=== PATIENT | male | born 1980 | race Caucasian/White ===

== ENCOUNTER 2022-02-10 20:01 | Emergency (ER) | payer MEDICAID, SELFPAY ==
[2022-02-10 20:17] VITALS: BP 128/72; PULSE 88; RESP 18; TEMP 36.4; O2SAT 98; BMI 22.6
--- NOTE | 2022-02-10 23:30 | ED_ITS ---
HPI - Anxiety General: Chief Complaint: Anxiety Stated Complaint: SOB\Chest Hurts\Bruised Tailbone\Dizzy\PanicAttack Time Seen by Provider: 02/10/22 23:30 History of Present Illness: Mr. Daley is a 41-year-old gentleman who presents emergency department due to multiple concerns. He reports a number of months ago being diagnosed with Covid and essentially since that time has had shortness of breath. Additionally he has had occasional episodes of chest discomfort in the left shoulder region though no other typical cardiac features with this. He also has noticed redness on his tailbone and has a history of similar with sometimes drainage. He endorses insomnia and difficulty with anxiety. He reports a longstanding history of medical concerns and estimates that he is probably seen 750 physicians in his lifetime. He does have a history of back surgery. Overall the intensity of symptoms is moderate. Course has persisted. He has had similar episodes in the past. Upon further clarification he does have a possible history of snoring and has never been evaluated for sleep apnea. He has difficulty falling asleep and staying asleep. He often wakes feeling tired and has frequent headaches though he has a history of back surgery and has had headaches since that time. Headaches have not changed significantly in these are not the worst headaches of his life. No other specific changes in health, exacerbating, or relieving factors identified. Onset (ago): year(s) Severity: moderate Review of Systems General: Reports: 10 or more systems reviewed and unremarkable except in HPI and below PFSH ED PFSH: Medical History Anxiety COVID Surgical History Previous back surgery Family History Other Degenerative joint disease (DJD) of lumbar spine Physical Exam Const: COMMON NORMALS: alert GENERAL APPEARANCE: cooperative and well developed HENMT: COMMON NORMALS: normocephalic and atraumatic HEAD & SCALP: normocephalic and atraumatic Eye: COMMON NORMALS: conjunctivae normal CONJUNCTIVA: Yes conjunctivae normal SCLERA: sclerae normal Neck/C-Spine: COMMON NORMALS: supple GENERAL: Yes trachea midline Resp: COMMON NORMALS: normal respiratory effort and clear to auscultation bilaterally EFFORT & INSPECTION: Yes able to speak in complete sentences AUSCULTATION: clear to auscultation bilaterally Cardio: COMMON NORMALS: regular rate and regular rhythm RATE: regular rate RHYTHM: regular rhythm GI: COMMON NORMALS: Soft to palpation PALPATION: Yes Soft to palpation and No Tenderness to palpation present (GI) PERCUSSION: normal to percussion Back/Pelvis: OTHER: The patient does have cellulitic appearing findings around region consistent with pilonidal cyst, there is no palpable fluid collection or obviously drainable fluid collection. Extremity: GENERAL: Yes normal exam except as noted and No edema Neuro: COMMON NORMALS: moves all extremities SENSORIUM/ORIENTATION: Yes alert and No Orientation impaired Psych: COMMON NORMALS: mental status grossly normal and Normal thought process present MOOD & AFFECT: Yes anxious THOUGHT PROCESS: Normal thought process present Course ED course: - Patient was seen and evaluated by me at bedside - Patient placed on cardiac monitors, IV access obtained - Initial evaluation notable for exam as above - Labs notable for leukocytosis of unclear significance, possibly related to cellulitis. No other sirs criteria identified. No acute electrolyte abnormalities requiring intervention. - Imaging notable for no acute finding on chest x-ray. Lumbar spine with intact hardware. - Upon serial reexamination after treatment the patient was similar to mildly improved - Based on patient history, evaluation, labs, and imaging as interpreted the most likely cause of the patient's condition is multifactorial, he certainly has anxiety though he may have underlying medical conditions such as sleep apnea. There does appear to be a small area of cellulitis which in the context of patient's symptoms and leukocytosis I will plan to treat. - The results of ED evaluation were discussed extensively with the patient including prescriptions and/or symptomatic cares (if applicable) including appropriate and responsible use, followup plan, and return precautions. The patient verbalized understanding and felt safe for discharge. - Patient discharged in satisfactory condition. Note: Click bubbles or prepopulated velasquez in note writing are used for assistance with data collection and billing and are inherently more limited than narrative and other text portions of this note. Please use narrative for additional clinical history and defer to narrative/free test for any case of contradictory information. If information appears in only free text or click bubble it should be considered present or absent as reported. Please contact note technical report writer for clarifications of clinical information or contradictory information. MDM is a brief summary, contradictory or erroneous seeming information should be clarified and full note should be reviewed. Vital Signs: Vital signs: Vital Signs Temperature 97.5 F L 02/11/22 01:17 Pulse Rate 85 02/11/22 01:17 Respiratory Rate 18 02/11/22 01:17 Blood Pressure 130/74 02/11/22 01:17 Pulse Oximetry 99 02/11/22 01:17 MDM - Anxiety Medical Decision Making 41-year-old gentleman with history of anxiety presenting with various concerns. ED evaluation only notable for cellulitis which will be treated with antibiotics. Patient referred for outpatient follow-up. Satisfactory for outpatient management. Medical Records I reviewed the patient's medical records. Lab Data I reviewed the patient's lab results. : 02/10/22 21:33 02/10/22 21:33 Radiology Impressions Chest X-Ray 02/10/22 23:41 IMPRESSION: No acute findings. Lumbar Spine X-Ray 02/10/22 23:41 IMPRESSION: 1. No acute findings. 2. Intact posterolateral and interbody fusion at L3-L4. Laboratory Results WBC 16.3 10^3/uL (4.0-10.0) H 02/10/22 21:33 RBC 5.03 10^6/uL (4.1-5.3) 02/10/22 21:33 Hgb 15.5 g/dL (11.7-16.6) 02/10/22 21:33 Hct 47.3 % (42.0-52.0) 02/10/22 21:33 MCV 94.0 fl (80-94) 02/10/22 21: MCH 30.8 pg (28.0-34.0) 02/10/22 21:33 MCHC 32.8 g/dL (30.0-36.0) 02/10/22 21:33 RDW 12.8 % (12.1-15.1) 02/10/22 21:33 Plt Count 412 10^3/cmm (130-400) H 02/10/22 21:33 MPV 10.9 fL (7.4-10.4) H 02/10/22 21:33 Neut % (Auto) 73.6 % 02/10/22 21:33 Lymph % (Auto) 14.3 % 02/10/22 21:33 [place] % (Auto) 9.5 % 02/10/22 21:33 Eos % (Auto) 1.7 % 02/10/22 21: Baso % (Auto) 0.6 % 02/10/22 21: Neut # (Auto) 11.99 10^3/uL (1.8-7.7) H 02/10/22 21:33 Lymph # (Auto) 2.3 10^3/uL (0.8-4.8) 02/10/22 21:33 [place] # (Auto) 1.5 10^3/uL (0.2-0.9) H 02/10/22 21: Eos # (Auto) 0.3 10^3/uL (0.0-0.8) 02/10/22 21: Baso # (Auto) 0.1 10^3/uL (0.0-0.1) 02/10/22 21: Nucleated RBC % (auto) 0 % 02/10/22 21: Nucleated RBCs # 0.0 /100WBC 02/10/22 21:33 Sodium 137 mmol/L (136-145) 02/10/22 21: Potassium 4.4 mmol/L (3.5-5.1) 02/10/22 21: Chloride 102 mmol/L (98-107) 02/10/22 21: Carbon Dioxide 25 mmol/L (22-29) 02/10/22 21:33 Anion Gap 14.4 (5-19) 02/10/22 21:33 BUN 14 mg/dL (6-20) 02/10/22 21: Creatinine 0.9 mg/dL (0.7-1.2) 02/10/22 21:33 GFR Calculation 93.0 mL/min (90-130) 02/10/22 21: Glucose 100 mg/dL (65-115) 02/10/22 21: Calculated Osmolality 285 mOsm/kg (285-295) 02/10/22 21: Calcium 8.6 mg/dL (8.5-10.5) 02/10/22 21:33 Total Bilirubin 0.2 mg/dL (0.15-1.2) 02/10/22 21: AST 13 U/L (0-40) 02/10/22 21:33 ALT 14 U/L (0-41) 02/10/22 21:33 Alkaline Phosphatase 98 IU/L (40-130) 02/10/22 21:33 Total Protein 7.1 g/dL (6.6-8.7) 02/10/22 21:33 Albumin 4.5 g/dL (3.5-5.2) 02/10/22 21:33 Globulin 2.6 g/dL (1.3-4.6) 02/10/22 21:33 TSH 1.32 uIU/mL (0.27-4.20) 02/10/22 21:33 EKG Data EKG 1: I personally reviewed and interpreted this EKG as follows: EKG interpretation date: 02/11/22 EKG interpretation time: 00:15 Interpretation: Chest X-Ray 02/10/22 23:41 IMPRESSION: No acute findings. Lumbar Spine X-Ray 02/10/22 23:41 IMPRESSION: 1. No acute findings. 2. Intact posterolateral and interbody fusion at L3-L4. Twelve-lead EKG shows a regular rhythm at a rate of 76. MI interval 218, QRS duration 112, QTc 388. Normal axis. Interpretation: Sinus rhythm. First-degree AV block. Other EKG comments: Chest X-Ray 02/10/22 23:41 IMPRESSION: No acute findings. Lumbar Spine X-Ray 02/10/22 23:41 IMPRESSION: 1. No acute findings. 2. Intact posterolateral and interbody fusion at L3-L4. Discharge Plan Discharge Patient Disposition: Home Clinical Impression: Cellulitis, Pilonidal cyst, Anxiety, Shortness of breath, Disturbance of sleep Condition: Stable Prescriptions: New clindamycin HCl 300 mg capsule 300 mg PO Q8H 7 Days Qty: 21 0RF Discharge Orders: Discharge ED (Routine); Ordered 02/11/22 Ordered By: Sourav Jasso Discharge Diet: Usual diet Discharge Activity: Resume usual activity Patient Instructions: Pilonidal Cyst (ED), Cellulitis (ED), Insomnia (ED), Anxiety (ED), Shortness of Breath (ED) Activity Restrictions/Additional Instructions: Thank you for visiting the emergency department. You were seen and evaluated for previous concerns. I do not see any evidence of pneumonia or other obvious cause of shortness of breath on your chest x-ray. As discussed, you do likely have skin infection surrounding which is possibly a pilonidal cyst. You will be given a prescription for antibiotics. I will also message case management for possibility of new primary care provider and also surgery follow-up if desired. I also believe that you need a sleep study with regards to your sleep disturbance. This should be arranged by primary care provider. Please return to the emergency department for worsening symptoms, fevers, uncontrolled pain, worsening despite treatment, or anything else that you are concerned about and feel needs emergency department evaluation. Coding Level of Care Code ED Software Developer Mid Level for Jose Fwcourtney Exam Comprehensive
--- NOTE | 2022-02-10 23:41 | XRR_ITS ---
PROCEDURE INFORMATION: Exam: XR Lumbosacral Spine Exam date and time: 02/10/2022 11:41 PM Age: 41 years old Clinical indication: Low back pain; Prior surgery; Surgery date: 6+ months TECHNIQUE: Imaging protocol: XR of the lumbosacral spine. Views: 2 or 3 views. COMPARISON: No relevant prior studies available. FINDINGS: Bones/joints: Spinal alignment is normal. Vertebral body height is maintained. No acute fracture. Intact posterolateral and interbody fusion at L3-L4. The visible portion of the sacrum and pelvis is unremarkable. Soft tissues: Visible soft tissues are unremarkable. XR/XR lumbar spine 2-3V* [id number] IMPRESSION: 1. No acute findings. 2. Intact posterolateral and interbody fusion at L3-L4.
--- NOTE | 2022-02-10 23:41 | XRR_ITS ---
PROCEDURE INFORMATION: Exam: XR Chest Exam date and time: 02/10/2022 11:41 PM Age: 41 years old Clinical indication: Shortness of breath; Additional info: SOB TECHNIQUE: Imaging protocol: XR of the chest. Views: 1 view. COMPARISON: No relevant prior studies available. FINDINGS: Lungs: Lungs are clear. Pleural spaces: There is no pleural effusion or pneumothorax. Heart/Mediastinum: Cardiomediastinal contours are unremarkable. Bones/joints: Bones are unremarkable. XR/XR chest 1V portable [id number] IMPRESSION: No acute findings.
--- NOTE | 2022-02-10 23:42 | ECG_ITS ---
[facility] Test Date: 2022-02-11 Pat Name: Oneal Daley Department: Room: Gender: Male Underground [employer] Locator: : 1980 Requested By: Sourav Jasso Order Number: [id number] Shaw MD: Venkatesh Weber M.D. Measurements Intervals [place] Rate: 76 P: 73 NV: 218 QRS: 92 QRSD: 112 T: 66 QT: 358 QTc: 403 Interpretive Statements SINUS RHYTHM No previous ECG available for comparison Electronically Signed On 02-12-2022 20:28:59 CDT by Venkatesh Weber M.D. [email or web address]
[2022-02-10 23:51] LABS: Basophils # 0.1 10^3/uL (0.0-0.1); Basophils % 0.6 %; Eosinophils # 0.3 10^3/uL (0.0-0.8); Eosinophils % 1.7 %; Hematocrit 47.3 % (42.0-52.0); Hemoglobin 15.5 g/dL (11.7-16.6); Lymphocytes # 2.3 10^3/uL (0.8-4.8); Lymphocytes % 14.3 %; Mean Corpuscular HGB Conc 32.8 g/dL (30.0-36.0); Mean Corpuscular Hemoglobin 30.8 pg (28.0-34.0); Mean Platelet Volume 10.9 fL (7.4-10.4); Monocytes # 1.5 10^3/uL (0.2-0.9); Monocytes % 9.5 %; Neutrophils # 11.99 10^3/uL (1.8-7.7); Neutrophils % 73.6 %; Nucleated Red Blood Cells % 0 %; Platelet Count 412 10^3/cmm (130-400); Red Blood Count 5.03 10^6/uL (4.1-5.3); Red Cell Distribution Width 12.8 % (12.1-15.1); White Blood Count 16.3 10^3/uL (4.0-10.0)
[2022-02-11 00:20] LABS: Alanine Aminotransferase 14 U/L (0-41); Albumin Level 4.5 g/dL (3.5-5.2); Alkaline Phosphatase 98 IU/L (40-130); Aspartate Amino Transferase 13 U/L (0-40); Blood Urea Nitrogen 14 mg/dL (6-20); Calcium 8.6 mg/dL (8.5-10.5); Carbon Dioxide 25 mmol/L (22-29); Chloride 102 mmol/L (98-107); Globulin 2.6 g/dL (1.3-4.6); Glucose 100 mg/dL (65-115); Osmolality Calculated 285 mOsm/kg (285-295); Sodium 137 mmol/L (136-145); Thyroid Stimulating Hormone 1.32 uIU/mL (0.27-4.20); Total Bilirubin 0.2 mg/dL (0.15-1.2); Total Protein 7.1 g/dL (6.6-8.7)
[2022-02-11 01:02] LABS: Anion Gap 14.4 (5-19); Potassium 4.4 mmol/L (3.5-5.1)
[2022-02-11 01:17] VITALS: BP 130/74; PULSE 85; RESP 18; TEMP 36.4; O2SAT 99
== END 2022-02-11 01:44 | disposition home or self-care (01) ==
PROVIDERS: Emergency Provider Emergency Medicine
DX: F41.9 Anxiety disorder, unspecified (principal); R06.02 Shortness of breath; G47.9 Sleep disorder, unspecified; L05.91 Pilonidal cyst without abscess; L03.317 Cellulitis of buttock
CPT/HCPCS: 71045; 72100; 80053; 84443; 85025; 93005; 99283